=== PATIENT | male | born 1960 | race Caucasian/White ===

== ENCOUNTER 2020-12-04 01:07 | Observation (INO) | payer MEDICARE, SELFPAY ==
[2020-12-04] VITALS (7 sets, daily range): BP systolic 125–162; BP diastolic 68–80; PULSE 53–64; RESP 17–20; TEMP 36.6–37.1; O2SAT 95–99; BMI 41.3
--- NOTE | 2020-12-04 01:07 | USCV_ITS ---
Bruno Castellano Age: 60 Gender: M : 1960 Exam Date: 12/04/2020 06:04 Ordering Phys: Ibeth Bustamante MD Technologist: Thi Quintanilla Exam Location: [facility] [place] Indication: TIA Risk Factors: Unknown Previous Vascular Surgery: None Right Brachial BP: / Left Brachial BP: / Right Left Velocity (cm/s) Spectral Plaque Velocity (cm/s) Spectral Plaque Syst/Diast Broadening Syst/Diast Broadening 94.80/ 18.70 Prox CCA 87.10 / 13.80 69.10/ 17.10 Mid CCA 80.70 / 22.60 61.40/ 14.00 Distal CCA 65.60 / 26.40 48.80/ 16.30 Prox ICA 59.30 / 17.90 44.00/ 14.90 Mid ICA 59.30 / 17.90 55.10/ 17.80 Distal ICA 61.50 / 19.00 61.40 ECA 64.90 0.80 ICA/CCA 0.76 Antegrade Vertebral Antegrade 26.10/ 7.90 cm/s 35.20/ 8.90 cm/s Tri Subclavian Tri 131.8 128.5 0 0 CONCLUSIONS Right ICA stenosis <50%. Left ICA stenosis <50%. Normal antegrade Doppler flow noted in the right vertebral artery. Normal antegrade Doppler flow noted in the left vertebral artery. Tian Richards MD (Electronically Signed) Final Date: 04 December 2020 08:59 S
--- NOTE | 2020-12-04 01:07 | USCV_ITS ---
Bruno Castellano Age: 60 Gender: M : 1960 Exam Date: 12/04/2020 05:34 Ordering Phys: Ibeth Bustamante MD Technologist: Thi Quintanilla Exam Location: [facility] [place] Indication: TIA BP: 130 / 68 HR: 47 Rhythm: Sinus Technical Quality: Adequate MEASUREMENTS (Male / Female) Normal Values 2D ECHO LV Diastolic Diameter PLAX 4.1 cm 4.2 - 5.9 / 3.9 - 5.3 cm LV Systolic Diameter PLAX 2.4 cm LV Chamber Size 3.3 cm IVS Diastolic Thickness 1.1 cm 0.6 - 1.0 / 0.6 - 0.9 cm IVS Systolic Thickness 1.5 cm LVPW Diastolic Thickness 1.3 cm 0.6 - 1.0 / 0.6 - 0.9 cm LVPW Systolic Thickness 1.4 cm RV Chamber Size 2.4 cm LVOT Diameter 2.1 cm LV Ejection Fraction 2D Teich 73.9 % LV Ejection Fraction MOD 2C 72.2 % LV Ejection Fraction 2C AL 71.3 % LA Diameter 3.8 cm LA Width 3.4 cm LA Height 4.3 cm RA Width 3.0 cm RA Height 4.9 cm Aorta at Sinotubular Diameter 3.3 cm M-MODE LV Diastolic Diameter MM 4.2 cm 4.2 - 5.9 / 3.9 - 5.3 cm LV Systolic Diameter MM 2.6 cm LV Ejection Fraction MM Teich 67.2 % IVS Diastolic Thickness MM 1.2 cm 0.6 - 1.0 / 0.6 - 0.9 cm IVS Systolic Thickness MM 1.8 cm LVPW Diastolic Thickness MM 1.2 cm 0.6 - 1.0 / 0.6 - 0.9 cm LVPW Systolic Thickness MM 1.7 cm RV Diastolic Diameter MM 3.0 cm Aortic Annulus Diameter 3.5 cm LA Ao Ratio MM 1.2 MV E Point Septal Separation 0.6 cm DOPPLER AV Peak Velocity 123.0 cm/s LVOT Peak Velocity 111.0 cm/s AV Area Cont Eq vti 2.7 cm squared AV Area Cont Eq pk 3.0 cm squared MV Area PHT 3.0 cm squared Mitral E to A Ratio 1.1 MV E' Velocity 38.0 cm/s Mitral E to MV E' Ratio 6.8 Mitral E to LV E' Lateral Ratio 5.4 Mitral E to LV E' Septal Ratio 9.0 TR Peak Velocity 132.3 cm/s TR Peak Gradient 7.0 mmHg TR Mean Velocity 95.9 cm/s TR Mean Gradient 4.5 mmHg TR Velocity Time Integral 36.3 cm TV Peak E Velocity 107.0 cm/s Right Atrial Pressure 3.0 mmHg Pulmonary Artery Systolic Pressu 10.0 mmHg PV Peak Velocity 74.0 cm/s RV Acceleration Time 0.1 s RV Ejection Time 0.4 s RV AcT/ET 0.3 FINDINGS Left Ventricle Normal left ventricular size and systolic function with no regional wall motion abnormalities. LVEF is 55 to 60%. Normal diastolic filling pattern. Right Ventricle The right ventricle is normal in size and function. Right Atrium The right atrium is normal in size. Left Atrium The left atrium is normal in size. Mitral Valve Structurally normal mitral valve without significant stenosis or prolapse. There is no mitral regurgitation. Aortic Valve Structurally normal aortic valve without significant sclerosis or stenosis. There is no aortic regurgitation. Tricuspid Valve Structurally normal tricuspid valve without significant stenosis or regurgitation. Insufficient TR jet to calculate RVSP. Pulmonic Valve Structurally normal pulmonic valve without significant stenosis. There is no pulmonic regurgitation. Pericardium Normal pericardium without effusion. Aorta Mildly dilated ascending aorta. CONCLUSIONS LV systolic function is normal with EF of 55 to 60%. Normal diastolic function. No significant valvular heart disease is seen. Mildly dilated ascending aorta is noted. No comparison studies are available. Charles Robin MD (Electronically Signed) Final Date: 04 December 2020 13:49 S
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
[2020-12-04] MEDS: magnesium oxide 400 mg tablet PO (03:15)
[2020-12-04] MEDS: lisinopril 20 mg Tablet 40 MG PO ×2 (03:15→08:06)
[2020-12-04] MEDS: potassium chloride ER 20 mEq Tablet PO (03:15)
[2020-12-04 06:20] LABS: Blood Urea Nitrogen 17 mg/dL (8-23); Calcium 9.6 mg/dL (8.5-10.5); Carbon Dioxide 24 mmol/L (22-29); Chloride 99 mmol/L (98-107); Glomerular Filtration Rate 68.1 mL/min (90-130); Glucose 135 mg/dL (65-115); Osmolality Calculated 282 mOsm/kg (285-295); Sodium 134 mmol/L (136-145)
[2020-12-04 06:21] LABS: Anion Gap 15.2 (5-19); Potassium 4.2 mmol/L (3.5-5.1)
[2020-12-04 06:37] LABS: Glucose Point of Care 139 mg/dL (70-110)
[2020-12-04] MEDS: escitalopram 10 mg Tablet 20 MG PO (08:05)
[2020-12-04] MEDS: aspirin 81 mg EC Tablet PO (08:05)
[2020-12-04] MEDS: gabapentin 300 mg Capsule PO (08:05)
[2020-12-04] MEDS: rivaroxaban 10 mg Tablet 20 MG PO (08:05)
[2020-12-04] MEDS: clopidogrel 75 mg Tablet PO (08:05)
--- NOTE | 2020-12-04 09:25 | PC.CHAP ---
Pastoral Care Encounter/Spiritual Assessment Type of Contact [] Declined cell lead visit [x] Patient/Family/Request visit [] Outpatient visit [] Follow-up visit [] Physician referral [] Code/Alert [x] Routine visit [] Staff referral [] Actively dying [] Patient sleeping [] Family support [] [] Out of room [] Palliative care [] [] Receiving care in room [] Pre-surgical visit [] Trauma [] Long length of stay [] ICU visit [] Other: Relational/Emotional Strength [] Patient feels connected with others/family/visitors/staff [] Distress [] Loneliness/isolation [] Abandonment Spirituality of Patient [] Person of Cori [] Attends Gnosticist of their Cori [] Believes in Prayer [] Reads Bible or Protestant materials [] There are Spiritual issues to be addressed Marking Stitcher Interventions [] Prayer [] Active listening [] Non-anxious presence [] Spiritual/emotional support [] Crisis/trauma care [] Spiritual counseling [] Bereavement support [] Provided bereavement packet [] Provided Bible/devotional materials [] Provided toy/stuffed animal, coloring book to patient or family member [] Provided Communion [] Anointing/Sarver [] Salvation [] Completed spiritual assessment [] Other: Impact on Illness or Injury [] Angry [] Fearful [] Anxious [] Often cries [] Exhaustion [] Unable to work [] Unable to attend congregation [] Unable to walk/stand [] Unable to read [] Unable to drive [] Unable to eat/drink [] Unable to sleep [] Unable to be with family [] Patient intubated [] Other: Summary Time spent with patient
[2020-12-04 12:17] LABS: Glucose Point of Care 136 mg/dL (70-110)
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
[2020-12-04 13:29] LABS: Basophils # 0.1 10^3/uL (0.0-0.1); Basophils % 0.8 %; Eosinophils # 0.2 10^3/uL (0.0-0.8); Eosinophils % 3.5 %; Hematocrit 46.4 % (42.0-52.0); Hemoglobin 15.3 g/dL (11.7-16.6); Lymphocytes # 1.9 10^3/uL (0.8-4.8); Lymphocytes % 31.3 %; Mean Corpuscular Hemoglobin 31.7 pg (28.0-34.0); Mean Corpuscular Volume 96.3 fL (80-94); Monocytes # 0.6 10^3/uL (0.2-0.9); Monocytes % 10.2 %; Neutrophils # 3.35 10^3/uL (1.8-7.7); Nucleated Red Blood Cells % 0 %; Platelet Count 282 10^3/cmm (130-400); Red Blood Count 4.82 10^6/uL (4.1-5.3); Red Cell Distribution Width 13.5 % (12.1-15.1); White Blood Count 6.2 10^3/uL (4.0-10.0)
[2020-12-04 14:21] LABS: Cholesterol 247 mg/dL (0-200); HDL Cholesterol 38 mg/dL (60-100); Iron 102 ug/dL (59-158); LDL Cholesterol Calculated 132 mg/dL (50-129); Thyroid Stimulating Hormone 0.65 uIU/mL (0.27-4.20); Total Iron Binding Capacity 255 mcg/dl; Triglycerides 384 mg/dL (0-150); Unsaturated Iron Binding 153 ug/dL (112-347); VLDL Cholestrol Calculation 77 mg/dL (0-30)
[2020-12-04 14:25] LABS: Estmated Average Glucose 143; Hemoglobin A1C 6.6 % (4.0-6.0)
--- NOTE | 2020-12-04 15:05 | PC.NURSE ---
Patient discharged at this time in stable condition. Discharged in the care of the . Discharge instructions given to patient all questions answered.
== END 2020-12-04 15:24 | disposition home or self-care (01) ==
PROVIDERS: Admitting Provider Internal Medicine; Visit Provider Student in an Organized Health Care Education/Training Program
DX: G45.9 Transient cerebral ischemic attack, unspecified (principal); E83.42 Hypomagnesemia; E87.6 Hypokalemia; Z79.01 Long term (current) use of anticoagulants; Z86.718 Personal history of other venous thrombosis and embolism; Z86.16 Personal history of COVID-19; E11.9 Type 2 diabetes mellitus without complications; Z87.820 Personal history of traumatic brain injury; I10 Essential (primary) hypertension; G47.33 Obstructive sleep apnea (adult) (pediatric); F41.9 Anxiety disorder, unspecified; F32.9 Major depressive disorder, single episode, unspecified; E78.5 Hyperlipidemia, unspecified; G47.30 Sleep apnea, unspecified; Z87.891 Personal history of nicotine dependence
CPT/HCPCS: 12345; 36415; 36416; 80048; 80061; 82962; 83036; 83540; 83550; 84443; 85025; 93306; 93880; G0378; G0379

== ENCOUNTER → 2022-07-25 10:35 | Outpatient (BNVA) | payer MEDICARE, SELFPAY | PROVIDERS: Visit Provider Podiatrist Foot & Ankle Surgery | DX: E11.8 Type 2 diabetes mellitus with unspecified complications (principal); L60.3 Nail dystrophy; E11.21 Type 2 diabetes mellitus with diabetic nephropathy | CPT/HCPCS: 11721; 99204 ==

== ENCOUNTER → 2023-01-14 14:44 | Outpatient (BNVA) | payer MEDICARE, SELFPAY | PROVIDERS: Visit Provider Podiatrist Foot & Ankle Surgery | DX: E11.8 Type 2 diabetes mellitus with unspecified complications (principal); L60.3 Nail dystrophy; E11.21 Type 2 diabetes mellitus with diabetic nephropathy | CPT/HCPCS: 99214 ==

== ENCOUNTER → 2023-12-08 13:14 | Outpatient (BNVA) | payer MEDICARE, SELFPAY | PROVIDERS: PCP Family Medicine; Visit Provider Podiatrist Foot & Ankle Surgery | DX: M76.72 Peroneal tendinitis, left leg (principal) | CPT/HCPCS: 99213 ==

== ENCOUNTER 2024-01-13 15:41 | Outpatient (CLI) | payer MEDICARE, SELFPAY | END 2024-01-13 15:42 | disposition home or self-care (01) | LOC: SPT 15:42 | PROVIDERS: PCP Registered Nurse; Visit Provider Podiatrist Foot & Ankle Surgery | DX: Z46.89 Encounter for fitting and adjustment of other specified devices (principal); M76.70 Peroneal tendinitis, unspecified leg; E11.21 Type 2 diabetes mellitus with diabetic nephropathy | CPT/HCPCS: 97760; 99213; L3030 ==

== ENCOUNTER → 2025-01-11 14:26 | Outpatient (BNVA) | payer MEDICARE, SELFPAY | PROVIDERS: PCP Registered Nurse; Visit Provider Podiatrist Foot & Ankle Surgery | DX: E11.21 Type 2 diabetes mellitus with diabetic nephropathy (principal); L60.3 Nail dystrophy | CPT/HCPCS: 99213 ==

== ENCOUNTER 2025-07-01 13:13 | Outpatient (RCR) | payer MEDICARE, SELFPAY | END 2025-07-10 23:59 | disposition home or self-care (01) | LOC: SPT 13:13 | PROVIDERS: Visit Provider Orthopaedic Surgery | DX: Z47.1 Aftercare following joint replacement surgery (principal); Z96.651 Presence of right artificial knee joint | CPT/HCPCS: 97161 ==